=== PATIENT | female | born 2000 | race Caucasian/White ===

== ENCOUNTER 2023-09-29 10:57 | Emergency (ER) | payer OTHER, SELFPAY ==
--- NOTE | 2023-09-29 11:10 | ED.GENADULT ---
HPI - General Adult General Chief complaint: Upper Respiratory Infection Stated complaint: cough Time Seen by Provider: 09/29/23 11:10 Source: patient, RN notes reviewed and old records reviewed Mode of arrival: ambulatory Limitations: no limitations History of Present Illness HPI narrative: 23-year-old female to [facility] with staff member for complaint of cough and vomiting in mouth for 2 days. Patient is nonverbal. Patient refused vitals in triage. Patient hesitant to allow staff near her. Respirations even and nonlabored. Patient sitting comfortably in exam room. No signs of acute distress. Staff endorses the patient is able to tolerate fluids by mouth. Staff denies recent fever, urinary or bowel changes. Related Data Home Medications Medication Instructions Recorded Confirmed aripiprazole 10 mg tablet 10 mg PO DAILY 09/29/23 09/29/23 buspirone 10 mg tablet 10 mg PO TID 09/29/23 09/29/23 divalproex 500 mg tablet,delayed 500 mg PO BID 09/29/23 09/29/23 release memantine 5 mg tablet 5 mg PO BID 09/29/23 09/29/23 norethindrone 1 mg-ethinyl 1 tablet PO DAILY 09/29/23 09/29/23 estradiol 35 mcg tablet (Alyacen) pantoprazole 20 mg tablet,delayed 20 mg PO DAILY 09/29/23 09/29/23 release risperidone 3 mg tablet 3 mg PO BID 09/29/23 09/29/23 trazodone 100 mg tablet 100 mg PO BID 09/29/23 09/29/23 Allergies Allergy/AdvReac Type Severity Reaction Status Date / Time methylphenidate Allergy Unknown Verified 09/29/23 11:22 [From Abigail] Review of Systems Review of Systems: All systems reviewed & are unremarkable except as noted in HPI and below Constitutional: Constitutional: Reports no additional constitutional complaints Eyes: Eyes: Reports no additional eye complaints ENT: Reports system reviewed and no additional complaints, except as documented Cardiovascular: Cardiovascular: Reports no additional cardiovascular complaints, Denies chest pain and Denies dyspnea Respiratory: Respiratory: Reports no additional respiratory complaints, Reports cough and Denies dyspnea Gastrointestinal: Gastrointestinal: Reports nausea and Reports vomiting Musculoskeletal: Musculoskeletal: Reports no additional musculoskeletal complaints Neurologic: Reports system reviewed and no additional complaints, except as documented Psychiatric: Psychiatric: Reports no additional psychiatric complaints PMFSH Comments At the time of my signature, I reviewed and agree with the nursing past medical, surgical, social, and family history. There is no relevant family history pertinent to the patient complaint. Exam Const: General: comfortable, no acute distress, alert, poor hygiene, tired appearing and well nourished Nutritional Appearance: well nourished Orientation/consciousness: patient oriented x3 Limitations: no limitations HENMT: Head: normal to inspection Ears: Abnormal EAC present cerumen impaction bilateral Face/Nose/Sinus: Normal external nose present, Normal nares present, normal facial exam, No erythema and No edema Face and sinus: normal facial exam, no erythema and no edema Mouth: Yes Normal oral and palatal mucosa present Other: Unable to examine patient's throat as patient would not allow Eyes: General: appearance normal, both eyes and all related structures Pupils: Equal, round and reactive pupils present Neck: Neck: normal visual inspection, full ROM and no meningeal signs Chest: Chest palpation & inspection: normal inspection of the chest Resp: Effort & Inspection: normal respiratory effort, no audible wheezes and Actively coughing actively coughing Auscultation: clear to auscultation bilaterally Cardio: Jugular venous distension: no JVD Rate: regular rate Rhythm: regular rhythm Back/Spine/Pelvis: Cervical Spine: cervical ROM normal Skin: General skin exam: normal color, no rashes or lesions noted and turgor normal Neuro: General: moves all extremities and no men
== END 2023-09-29 11:55 | disposition home or self-care (01) ==
PROVIDERS: Emergency Provider Nurse Practitioner Family
DX: J06.9 Acute upper respiratory infection, unspecified (principal); H61.23 Impacted cerumen, bilateral
CPT/HCPCS: 99213; G0463